=== PATIENT | female | born 1995 | race Caucasian/White ===

== ENCOUNTER → 2017-01-04 | Outpatient (CLI) | payer OTHER ==
[2017-01-04 14:44] LABS: CH 30.8; CHCM 33.3; HCT 35.3 % (34.0-46.0); HDW 2.26; HGB 11.6 gm/dL (11.4-16.0); MCH 30.5 pg (25.0-35.0); MCHC 32.9 g/dL (31.0-37.0); MCV 92.6 fL (80.0-100.0); Mean Platelet Volume 6.8; RBC 3.81 m/uL (3.80-5.40); RDW 12.6 % (11.5-15.5); WBC 10.6 k/uL (3.8-10.6)
== END | disposition home or self-care (01) ==
LOC: LABWHC1 13:11
PROVIDERS: ATTEND Obstetrics & Gynecology
DX: Z34.02 Encounter for supervision of normal first pregnancy, second trimester (principal)
CPT/HCPCS: 36415; 82950; 85027

== ENCOUNTER → 2017-02-23 | Outpatient (CLI) | payer OTHER ==
--- NOTE | 2017-02-23 15:38 | US ---
EXAMINATION TYPE: US OB anatomy transabd DATE OF EXAM: 02/23/2017 3:04 PM COMPARISON: 08/18/1716 HISTORY: large for dates 3rd trimester lga TECHNIQUE: Transabdominal (TA) EXAM MEASUREMENTS: GESTATIONAL AGE / DATING Physician Established: (35 weeks/0 days) EDC: 03/30/2017 Dates by LMP: (35 weeks/1 days) EDC: 03/31/2017 Dates by First Scan: (35 weeks/1 days) EDC: 03/31/2017 Dates by Current Scan for: (34 weeks/4 days) EDC: 04/02/2017 SURVEY IUP: Single PLACENTA: Fundal PREVIA: No previa AQUILINO: 11.2 cm Normal CERVICAL LENGTH (transabdominal: norm > 3.0cm): 3.4 cm BIOMETRY PRESENTATION: Vertex LIE: Longitudinal BPD: 8.8 cm 35 weeks / 3 days HC: 31.1 cm 34 weeks / 5 days AC: 31.3 cm 35 weeks / 2 days FL: 6.8 cm 34 weeks / 6 days ESTIMATED WEIGHT IN GRAMS: 2594 grams ESTIMATED WEIGHT IN LBS/OZS: 5 lbs. 12 oz. WEIGHT PERCENTAGE BASED ON ESTABLISHED DATE: 50 % HC/AC: 0.99 FL/AC: 21 HEART RATE: 149 bpm RHYTHM: Normal ANATOMY SEEN (within normal limits): * Lateral Vent (< 1 cm) 0.7 cm * Cisterna Magna (< 1.1 cm) 0.6 cm * Cerebellum (varies with age) 5.5 cm Midline Falx Cavus Septi Pellucidi Four Chamber Heart Stomach Nose / Lips Diaphragm Kidneys (bilateral) Bladder Three Vessel Cord Longitudinal Spine Transverse Spine ANATOMY NOT SEEN: Choroid Plexus (bilateral) Outflow tracts: LVOT/RVOT Situs Cord Insert Arms (bilateral) Legs (bilateral) IMPRESSION: Viable of 34 weeks 4 days with an EDC of 04/02/2017. 2. Limited assessment of internal anatomy secondary to advanced gestational age.
== END | disposition home or self-care (01) ==
LOC: RADUSWWP 14:26
PROVIDERS: ATTEND Obstetrics & Gynecology
DX: O36.63X0 Maternal care for excessive fetal growth, third trimester, not applicable or unspecified (principal); Z3A.34 34 weeks gestation of pregnancy
CPT/HCPCS: 76811

== ENCOUNTER 2017-03-21 01:20 | Inpatient (IN) | payer OTHER ==
[2017-03-21] MEDS ORDERED: CARBOPROST TROMETHAMINE 250 MCG/ML 1 ML AMP IM PRN (01:42)
[2017-03-21] MEDS ORDERED: LIDOCAINE 1% (PF) 10 MG/ML (30 ML SDV) SQ PRN (01:42)
[2017-03-21] MEDS ORDERED: OXYTOCIN 10 UNIT/ML 1 ML VIAL IM PRN (01:42)
[2017-03-21] MEDS ORDERED: TERBUTALINE 1 MG/ML VIAL SQ PRN (01:42)
[2017-03-21] MEDS ORDERED: AMPICILLIN 2,000 MG in SODIUM CHLORIDE 0.9% 100 ML IVPB STA (01:42)
[2017-03-21] MEDS ORDERED: METHYLERGONOVINE 0.2 MG/ML 1 ML AMP IM PRN (01:42)
[2017-03-21] MEDS ORDERED: LACTATED RINGERS 1,000 ML IV SCH (01:45)
[2017-03-21] MEDS ORDERED: methylPREDNISolone SOD SUCCI 125 MG/2 ML VIAL IV SCH (01:45)
--- NOTE | 2017-03-21 02:01 | P.HPOB ---
History of Present Illness H&P Date: 03/21/17 Chief Complaint: Contractions. This patient is a 21-year-old 1 para 0 female estimated date of confinement 03/31/2017 estimated gestational age 38-3/7 weeks gestational age who is admitted to labor and delivery with complaint of painful contractions patient was here earlier in the day only 2 cm dilated is now 9 cm dilated thought to be in active labor. care is per Dr. Iglesias. Most recently she was treated for asthma exacerbation with steroids and therefore does need stress dose steroids. She also has a positive group B strep culture this . Review of Systems Constitutional: Denies chills, Denies fever Ears, nose, mouth and throat: Denies headache, Denies sore throat Cardiovascular: Denies chest pain, Denies shortness of breath Respiratory: Denies cough Gastrointestinal: Reports heartburn Genitourinary: Reports pelvic pain, Reports Menstruation: Reports amenorrhea Past Medical History Past Medical History: Syncope History of Any Multi-Drug Resistant Organisms: None Reported Past Surgical History: No Surgical Hx Reported Past Anesthesia/Blood Transfusion Reactions: No Reported Reaction Past Psychological History: No Psychological Hx Reported Smoking Status: Never smoker Past Alcohol Use History: None Reported Past Drug Use History: None Reported Medications and Allergies Home Medications Medication Instructions Recorded Confirmed Type Pnv with Ca,No.72/Iron/FA 1 tab PO DAILY 03/20/17 03/20/17 History [ Plus Tablet] Allergies Allergy/AdvReac Type Severity Reaction Status Date / Time No Known Allergies Allergy Verified 03/21/17 01:43 Exam - Vital Signs Vital signs: Intake and Output 03/20/17 03/20/17 03/21/17 14:59 22:59 06:59 Other: Weight 86.183 kg Patient Weight 03/21/17 06:59 Weight 86.183 kg - OBG Physical Exam Abdomen: bowel sounds normal, no diffuse tenderness, no bruit present, no guarding noted, no hepatomegaly, no splenomegaly, no mass Vulva: both: normal Vagina: normal moisture, no discharge Cervix: Cervix is 9 cm dilated and the head is 0 station. Cervix: no lesion, no discharge Uterus: enlarged Results Blood work shows she is A positive, hepatitis B is negative, rubella immune, RPR is nonreactive, group B strep was normal, ultrasounds have been normal. Assessment and Plan (1) Third trimester Narrative/Plan: This is a 21-year-old 1 para 0 female 38-3/7 weeks gestation active labor. History of positive strep and recent history of steroid use. Plan is antibiotic prophylaxis, stress dose steroids in labor and anticipate vaginal delivery. Status: Acute (2) Normal labor Status: Acute (3) Group B streptococcal carriage complicating Status: Acute (4) History of recent steroid use Status: Acute
[2017-03-21 02:09] VITALS: BMI 29.7
[2017-03-21 02:19] LABS: CH 30.5; CHCM 34.1; HCT 40.2 % (34.0-46.0); HDW 2.65; HGB 13.6 gm/dL (11.4-16.0); MCH 30.4 pg (25.0-35.0); MCHC 33.7 g/dL (31.0-37.0); Mean Platelet Volume 8.2; RBC 4.46 m/uL (3.80-5.40); RDW 12.9 % (11.5-15.5); WBC (Perox) 25.34
[2017-03-21] MEDS ORDERED: diphenhydrAMINE 50 MG/ML 1 ML VIAL IVP PRN (02:36)
[2017-03-21] MEDS ORDERED: SIMETHICONE 80 MG CHEWABLE PO PRN (02:36)
[2017-03-21] MEDS ORDERED: BISACODYL 10 MG SUPP RECTAL PRN (02:36)
[2017-03-21] MEDS ORDERED: LANOLIN CREAM 5 GM TUBE TOPICAL PRN (02:36)
[2017-03-21] MEDS ORDERED: ZOLPIDEM 5 MG TAB PO PRN (02:36)
[2017-03-21] MEDS ORDERED: diphenhydrAMINE 25 MG CAP PO PRN (02:36)
[2017-03-21] MEDS ORDERED: WITCH HAZEL 1 EACH MED..PAD TOPICAL PRN (02:36)
[2017-03-21] MEDS ORDERED: HYDROCORTISONE 2.5% RECTAL CREAM 30 GM TUBE RECTAL PRN (02:36)
[2017-03-21] MEDS ORDERED: ACETAMINOPHEN TAB 325 MG TAB PO PRN (02:36)
[2017-03-21] MEDS ORDERED: BENZOCAINE/MENTHOL SPRAY 1 GM/SPRAY AEROSOL TOPICAL PRN (02:36)
--- NOTE | 2017-03-21 02:41 | P.PROBDLV ---
Vaginal Delivery Note - . Vaginal Delivery Note: Normal spontaneous vaginal delivery viable male infant Apgars 7 and 8 delivery time is 0222 hours Please see dictated H&P for intimate details of this patient's admission. Brief summary this is a 21-year-old 1 para 0 female 38-3/7 weeks gestation who is admitted to labor and delivery with complaints of contractions found to be 9 cm dilated. Patient has artificial rupture of membranes for clear fluid. She has a history of positive strep culture and therefore is given IV antibiotics. She also has a history of recent steroid use and therefore is given a dose of stress dose steroids. Patient's labor progresses quickly and she gets to complete. I infiltrate the posterior perineum with 1% lidocaine and a midline episiotomy is made. We then have controlled delivery of 's head over the perineum. Mouth and nares are bulb suctioned. There is very tight nuchal cord which is doubly clamped cut and reduced. Then have delivery the anterior posterior shoulder and rest this 's body. This is a vigorous viable male Apgars are 7 and 8 delivery time is 0222 hrs. after delivery of the the umbilical cords doubly clamped and cut appears to be trivascular. The placenta spontaneously delivered intact. Estimated blood loss is 150 mL. There is a second-degree midline laceration which is repaired with 3-0 Vicryl usual fashion good reapproximation is noted. Will be taken to the nursery for observation and blood work due to positive strep and short labor. All are stable delivery room. Note the patient's white count was 26 and therefore continue her on some oral antibiotics as well.
[2017-03-21] MEDS: IBUPROFEN 600 MG TAB PO PRN ×2 (02:54→17:38)
[2017-03-21 03:41] LABS: Add Differential Manual Differential
[2017-03-21 03:43] LABS: Nucleated Red Blood Cells 0 /100 WBC (0-0); Total Cells Counted 100
[2017-03-21 03:45] LABS: Toxic Granulation Present; Toxic Vacuolation Present
[2017-03-21 03:46] LABS: Large Platelets Present; Manual Review Performed
[2017-03-21] MEDS ORDERED: AMPICILLIN 1,000 MG in SODIUM CHLORIDE 0.9% 50 ML IVPB SCH (06:00)
[2017-03-21] MEDS ORDERED: OXYTOCIN 30 UNITS/500 ML NS 30 UNIT in SALINE 1 500ML.BAG IV SCH (06:45)
[2017-03-21] MEDS: AMOXIC-POT CLAV 875-125MG 1 EACH TAB PO SCH ×2 (08:04→21:06)
[2017-03-21] MEDS: SENNOSIDES-DOCUSATE SODIUM 1 EACH TAB PO SCH ×2 (08:04→21:04)
[2017-03-21] MEDS: methylPREDNISolone 4 MG TAB TAPER PO SCH (08:04)
[2017-03-21] MEDS: Acetaminophen-Codeine 300-30mg TAB PO PRN ×2 (08:05→22:57)
--- NOTE | 2017-03-21 08:09 | P.PN ---
Progress Note - Text Patient's abusive drug screen came back positive for marijuana and opiates. I did question the patient in regard to this she states that the Tylenol 3 she was taking that she received in the emergency department when she was diagnosed with bronchitis. She states that she is around a lot of people who use marijuana and that's where she believes that came from. Did tell her that social media marketing specialist consult will be put in place just ensure the baby was going home to a safe environment.
[2017-03-22 00:02] VITALS: RESP 16
[2017-03-22] MEDS: methylPREDNISolone 4 MG TAB TAPER PO SCH (07:47)
[2017-03-22] MEDS: AMOXIC-POT CLAV 875-125MG 1 EACH TAB PO SCH ×2 (07:48→21:56)
[2017-03-22] MEDS: SENNOSIDES-DOCUSATE SODIUM 1 EACH TAB PO SCH ×2 (07:48→23:32)
[2017-03-22] MEDS: IBUPROFEN 600 MG TAB PO PRN ×2 (07:48→14:27)
--- NOTE | 2017-03-22 09:14 | P.PNOBGVD ---
Subjective - Subjective Principal diagnosis: Status post vaginal delivery day #1 Interval history: Patient is doing okay. Bleeding is slowing down. She is breast-feeding. Baby is in special care nursery at this time. Her drug screen is positive for opiates and marijuana. She was prescribed Tylenol No. 3 through the ER recently due to her severe bronchitis and coughing. I was aware of this and did acknowledge that she was on it in the office. She was told to take the medication sparingly as needed. The positive drug screen for marijuana however is concerning. Patient reports: Reports appetite normal, Reports voiding normally, Reports pain well controlled, Reports ambulating normally : nursing well, other (In nursery) Objective - Latest Vital Signs Latest vital signs: Vital Signs Temp Pulse Resp BP 03/22/17 07:53 97.9 F 85 16 124/79 03/21/17 23:59 97.6 F 83 16 134/82 03/21/17 16:00 98.3 F 94 14 133/79 03/21/17 12:00 97.6 F 94 14 139/87 Intake and Output 03/21/17 03/22/17 03/22/17 22:59 06:59 14:59 Intake Total 600 Balance 600 Intake: Oral 600 Other: # Voids 2 1 - Exam Extremities: Present: normal. Absent: tenderness Abdomen: Present: normal appearance, soft. Absent: tenderness Uterus: Present: normal, firm. Absent: tenderness Assessment and Plan (1) Vaginal delivery Narrative/Plan: Impression is status post vaginal delivery day #1. Plan is to continue with care today and anticipate discharge home tomorrow. Will await social welfare research worker consult. Current Visit: Yes Status: Acute Code(s): O80 - ENCOUNTER FOR FULL-TERM UNCOMPLICATED DELIVERY SNOMED Code(s): 495895022
[2017-03-22 09:35] LABS: Basophils # (A) 0.1 k/uL (0-0.2); Basophils % (A) 0 %; CH 30.3; CHCM 34.3; Eosinophils # (A) 0.2 k/uL (0-0.7); Eosinophils % (A) 1 %; HCT 33.2 % (34.0-46.0); HDW 2.69; HGB 11.4 gm/dL (11.4-16.0); Luc # (Auto) 0.49; Luc % (Auto) 3; Lymphocytes # (A) 4.7 k/uL (1.0-4.8); Lymphocytes % (A) 24 %; MCH 30.4 pg (25.0-35.0); MCHC 34.3 g/dL (31.0-37.0); MCV 88.7 fL (80.0-100.0); Mean Platelet Volume 7.4; Monocytes # (A) 1.3 k/uL (0-1.0); Monocytes % (A) 7 %; Neutrophils # (A) 12.8 k/uL (1.3-7.7); Neutrophils % (A) 65 %; RBC 3.75 m/uL (3.80-5.40); RDW 13.2 % (11.5-15.5); WBC 19.7 k/uL (3.8-10.6); WBC (Perox) 20.88
[2017-03-22] MEDS ORDERED: ALBUTEROL NEBULIZED 2.5 MG/3 ML INHALATION STA (10:12)
[2017-03-22] MEDS: Acetaminophen-Codeine 300-30mg TAB PO PRN (17:53)
[2017-03-22] MEDS ORDERED: ALBUTEROL NEBULIZED 2.5 MG/3 ML INHALATION PRN ×2 (17:57→18:32)
[2017-03-23] MEDS: Acetaminophen-Codeine 300-30mg TAB PO PRN ×2 (02:08→13:40)
[2017-03-23] MEDS: IBUPROFEN 600 MG TAB PO PRN ×2 (07:48→17:03)
[2017-03-23] MEDS: methylPREDNISolone 4 MG TAB TAPER PO SCH (07:49)
[2017-03-23] MEDS: AMOXIC-POT CLAV 875-125MG 1 EACH TAB PO SCH (07:49)
[2017-03-23] MEDS: SENNOSIDES-DOCUSATE SODIUM 1 EACH TAB PO SCH (07:50)
[2017-03-23 08:23] VITALS: BP 128/78; PULSE 88; TEMP 98.1
--- NOTE | 2017-03-23 09:01 | P.DS ---
Providers Date of admission: 03/21/17 01:20 Expected date of discharge: 03/23/17 Attending physician: Ry Tinoco Primary care physician: Tish Iglesias - Discharge Diagnosis(es) (1) Vaginal delivery Current Visit: Yes Status: Acute Hospital Course: This is a 21-year-old female 1 para 0 at 38 weeks who presented in active labor. She delivered vaginally a viable male infant with scores of 7 at 1 minute 8 at 5 minutes and weight of 6 lbs. 2 oz. Her course has been uncomplicated. Baby has been in special care nursery. She is breast-feeding. Lochia is decreasing. Pain is fairly well controlled with ibuprofen and Tylenol 3. Vital signs are stable. Abdomen is soft with fundus firm and nontender. Extremities show negative Homans. Impression is status post vaginal delivery day #2. Plan is to discharge home today. Routine instructions are given. She is advised to follow up in the office in 6 weeks for check. To call the office if she has any further questions or concerns prior to her appointment time. Procedures: Spontaneous vaginal delivery of a viable male infant on 03/21/2017. Patient Condition at Discharge: Stable Plan - Discharge Summary New Discharge Prescriptions: Acetaminophen-Codeine 300-30mg [Tylenol w/codeine #3] 1 each PO Q4HR PRN #30 tab PRN Reason: Mild Pain exceeding Tylenol Ibuprofen [Motrin] 600 mg PO Q6HR PRN #60 tab PRN Reason: Mild Pain Or Fever >= 100.5 Discharge Medication List Pnv with Ca,No.72/Iron/FA [ Plus Tablet] 1 tab PO DAILY 03/20/17 [ History] Acetaminophen-Codeine 300-30mg [Tylenol w/codeine #3] 1 each PO Q4HR PRN #30 tab 03/22/17 [Rx] Ibuprofen [Motrin] 600 mg PO Q6HR PRN #60 tab 03/22/17 [Rx] Follow up Appointment(s)/Referral(s): Tish Iglesias DO [Primary Care Provider] - 6 Weeks Activity/Diet/Wound Care/Special Instructions: Instructions 1. Do not begin any exercise program for 3 weeks. 2. Do not resume sexual relations for 3 weeks or longer if uncomfortable. 3. You may take tub baths or showers at any time. 4. You may use tampons if desired after 3 weeks. 5. Keep the area of episiotomy (stitches) clean and dry. 6. If you are not nursing, wear a good fitting, supportive bra during the day and limit fluid intake for at least 1 week to prevent breast engorgement. 7. Call the office, [phone], within the next week to make appointment for your 6 week checkup if it has not already been made. 8. Report any of the following occurrences to the doctor promptly: a. Heavy, excessive bleeding b. Chills, fever c. Burning or frequency of urination d. Pain or redness and breasts if nursing e. Increasing pain or swelling in episiotomy (stitches). In addition to the above instructions, the following additional should be followed: 1. No heavy lifting or straining (exercising) until after 6 week checkup. 2. Keep abdominal incision clean and dry: You may wear a dressing if more comfortable. 3. Make office appointment for 10 days after going home or as instructed by her doctor. Discharge Disposition: HOME SELF-CARE
== END 2017-03-23 17:15 | disposition home or self-care (01) | DRG 775 ==
LOC: 4FBP 01:20
PROVIDERS: ADMIT Obstetrics & Gynecology; ATTEND Obstetrics & Gynecology
PROC: 0KQM0ZZ Repair Perineum Muscle, Open Approach (ICD-10-PCS; principal; 2017-03-21)
PROC: 10907ZC Drainage of Amniotic Fluid, Therapeutic from Products of Conception, Via Natural or Artificial Opening (ICD-10-PCS; principal; 2017-03-21)
PROC: 10H073Z Insertion of Monitoring Electrode into Products of Conception, Via Natural or Artificial Opening (ICD-10-PCS; principal; 2017-03-21)
PROC: 4A1H74Z Monitoring of Products of Conception, Cardiac Electrical Activity, Via Natural or Artificial Opening (ICD-10-PCS; principal; 2017-03-21)
PROC: 10E0XZZ Delivery of Products of Conception, External Approach (ICD-10-PCS; principal; 2017-03-21)
PROC: 0W8NXZZ Division of Female Perineum, External Approach (ICD-10-PCS; principal; 2017-03-21)
DX: O99.824 Streptococcus B carrier state complicating childbirth (principal); F17.210 Nicotine dependence, cigarettes, uncomplicated; F12.90 Cannabis use, unspecified, uncomplicated; Z37.0 Single live birth; Z3A.38 38 weeks gestation of pregnancy; O99.324 Drug use complicating childbirth; O69.1XX0 Labor and delivery complicated by cord around neck, with compression, not applicable or unspecified; O70.1 Second degree perineal laceration during delivery; O99.334 Smoking (tobacco) complicating childbirth
CPT/HCPCS: 80306; 85025; 88307; 94640

== ENCOUNTER → 2018-04-12 | Outpatient (CLI) | payer OTHER | END | disposition home or self-care (01) | LOC: RADNMMAIN 12:58 | PROVIDERS: ATTEND Surgery Plastic and Reconstructive Surgery | DX: Z53.1 Procedure and treatment not carried out because of patient's decision for reasons of belief and group pressure (principal) ==

== ENCOUNTER → 2018-06-20 | Outpatient (CLI) | payer OTHER ==
--- NOTE | 2018-06-20 09:24 | NM ---
Nuclear medicine hepatobiliary scan. HISTORY: Pain. DOSAGE: The patient received 8 oz. Ensure plus and 4.8 mCi of Technetium 99m Choletec. FINDINGS: There is normal hepatic extraction. The gallbladder is seen by 30 minutes. There is bilia ry to bowel clearance by 50 minutes. Ejection fraction is 56%. IMPRESSION: 1. Normal hepatobiliary exam
== END | disposition home or self-care (01) ==
LOC: RADNMMAIN 06:59
PROVIDERS: ATTEND Surgery Plastic and Reconstructive Surgery
DX: R10.11 Right upper quadrant pain (principal); K21.9 Gastro-esophageal reflux disease without esophagitis; Z88.1 Allergy status to other antibiotic agents; Z88.8 Allergy status to other drugs, medicaments and biological substances
CPT/HCPCS: 78226; A9537

== ENCOUNTER → 2018-09-16 | Outpatient (CLI) | payer OTHER ==
--- NOTE | 2018-09-17 21:23 | XR ---
EXAMINATION TYPE: XR lumbosacral spine min 4V DATE OF EXAM: 09/16/2018 COMPARISON: 07/26/2013 HISTORY: 22-year-old female with low back pain TECHNIQUE: 5 views FINDINGS: Levoconvex scoliosis. 5 lumbar type vertebral bodies. Small posterior fusion defect of S1. No pars in terarticularis defect. There is mild degenerative spurring in the lower lumbar spine. Alignment is ma intained. Vertebral body heights are preserved. Disc interspaces are also relatively maintained. The leftward curvature does cause some limitation in assessment on the lateral view. IMPRESSION: Levoconvex scoliosis. Mild degenerative facet spurring in the lower lumbar spine.
== END | disposition home or self-care (01) ==
LOC: RADXRMAIN 17:06
PROVIDERS: ATTEND Family Medicine
DX: M46.06 Spinal enthesopathy, lumbar region (principal); M41.86 Other forms of scoliosis, lumbar region
CPT/HCPCS: 72110

== ENCOUNTER 2019-04-10 20:54 | Emergency (ER) | payer OTHER ==
[2019-04-10 21:00] VITALS: BP 113/74; PULSE 102; TEMP 98.2
[2019-04-10 22:14] LABS: Appearance,Urine Clear (Clear); Bilirubin,Urine Negative (Negative); Blood,Urine Negative (Negative); Color,Urine Yellow; Glucose,Urine (UA) Negative (Negative); Hyaline Casts,Urine 1 /lpf (0-2); Ketones,Urine Negative (Negative); Leukocyte Esterase,Urine Small (Negative); Mucus,Urine Rare /hpf; Nitrite,Urine Negative (Negative); Protein,Urine Negative (Negative); RBC,Urine 1 /hpf (0-5); Specific Gravity,Urine 1.018 (1.001-1.035); Squamous Epithelial Cell,Urine 3 /hpf (0-4); Urobilinogen,Urine <2.0 mg/dL (<2.0); WBC,Urine 5 /hpf (0-5)
[2019-04-10] MEDS ORDERED: KETOROLAC 30 MG/ML 1 ML VIAL IM STA (22:16)
--- NOTE | 2019-04-10 23:28 | XR ---
EXAM: XR Lumbar Spine, 2 or 3 Views CLINICAL HISTORY: ITS.REASON XR Reason: Pain TECHNIQUE: Frontal and lateral views of the lumbar spine. COMPARISON: Lumbar spine radiographs on 09/16/2018 FINDINGS: Bones/joints: No acute fracture or subluxation. Stable mild left convex curvature of the lumbar spine. Soft tissues: Normal. IMPRESSION: No acute abnormality identified.
--- NOTE | 2019-04-10 23:30 | XR ---
EXAM: XR Left Hip With Pelvis When Performed, 2 or 3 Views CLINICAL HISTORY: ITS.REASON XR Reason: Pain TECHNIQUE: Two or three views of the left hip, with pelvis when performed. COMPARISON: Right hip radiographs on 05/09/2015 FINDINGS: Bones/joints: No acute fracture or dislocation identified. Joint space is maintained. No bony lesion. Soft tissues: Normal. IMPRESSION: No acute abnormality identified.
--- NOTE | 2019-04-10 23:37 | ED ---
General Adult HPI - General Chief complaint: Extremity Injury, Lower Stated complaint: Hip Pain Time Seen by Provider: 04/10/19 21:10 Source: patient, RN notes reviewed Mode of arrival: ambulatory Limitations: no limitations - History of Present Illness Initial comments: 23-year-old female presents to the emergency department for a chief of left hip pain 9 hours. Patient states that she was getting out of her car when she swung her left leg around and suddenly felt a pain in her left hip. States that she has had this pain several times before because he has a history of scoliosis. States she sees a chiropractor weekly for this. Patient states the pain is in her buttock and wraps around her left hip. States she is able to walk on it but it is painful. States she does not take Motrin or Tylenol much because it makes her nauseous. Patient states her primary care doctor is aware of this problem. Patient denies any bladder or bowel changes. Denies any saddle anesthesia. Denies any history of IV drug abuse. Denies any weakness of the lower extremities. Denies any fevers or chills.Patient has no other complaints at this time including shortness of breath, chest pain, abdominal pain, nausea or vomiting, headache, or visual changes. - Related Data Home Medications Medication Instructions Recorded Confirmed No Known Home Medications 04/10/19 04/10/19 Allergies Allergy/AdvReac Type Severity Reaction Status Date / Time acetaminophen [From [place]] AdvReac Nausea & Verified 04/10/19 21:09 Vomiting hydrocodone [From [place]] AdvReac Nausea & Verified 04/10/19 21:09 Vomiting Review of Systems ROS Statement: Those systems with pertinent positive or pertinent negative responses have been documented in the HPI. ROS Other: All systems not noted in ROS Statement are negative. Past Medical History Past Medical History: Syncope Additional Past Medical History / Comment(s): scoliosis History of Any Multi-Drug Resistant Organisms: None Reported Past Surgical History: No Surgical Hx Reported Past Anesthesia/Blood Transfusion Reactions: No Reported Reaction Past Psychological History: No Psychological Hx Reported Smoking Status: Current every day smoker Past Alcohol Use History: None Reported Past Drug Use History: None Reported - Past Family History Mother Family Medical History: No Reported History General Exam Limitations: no limitations General appearance: alert, in no apparent distress Head exam: Present: atraumatic, normocephalic, normal inspection Eye exam: Present: normal appearance, PERRL, EOMI. Absent: scleral icterus, conjunctival injection, periorbital swelling ENT exam: Present: normal exam, mucous membranes moist, normal external ear exam Neck exam: Present: normal inspection, full ROM. Absent: tenderness, meningismus, lymphadenopathy Respiratory exam: Present: normal lung sounds bilaterally. Absent: respiratory distress, wheezes, rales, rhonchi, stridor Cardiovascular Exam: Present: regular rate, normal rhythm, normal heart sounds. Absent: systolic murmur, diastolic murmur, rubs, gallop, clicks GI/Abdominal exam: Present: soft, normal bowel sounds. Absent: distended, tenderness, guarding, rebound, rigid Extremities exam: Present: normal capillary refill (Capillary refill less than 2 seconds, DP pulse 2+ in the left lower extremity and equal in the right lower extremity). Absent: full ROM (Patient has flexion of the left hip to 90 with full extension), tenderness (No significant tenderness of the left hip), pedal edema, joint swelling, calf tenderness (Tenderness noted in the left calf), other (No erythema or edema noted of the left hip, sensation intact in the left lower extremity) Back exam: Absent: vertebral tenderness (No tenderness noted of the lumbar spine) Neurological exam: Present: alert, oriented X3, CN II-XII intact Psychiatric exam: Present: normal affect, normal mood Course Vital Signs 04/10/19 04/10/19 20:57 22:29 Temperature 98.2 F Pulse Rate 102 H Respiratory 20 18 Rate Blood Pressure 113/74 O2 Sat by Pulse 99 Oximetry Medical Decision Making - Medical Decision Making 23-year-old female presents for left hip pain 9 hours. Patient states she has had this pain due to her scoliosis several times before. States that she sees a chiropractor weekly for this. States often her hip as malaligned and needs realignment. On examiner bacitracin is is intact and left lower extremity. Patient has flexion of the left hip to 90. Patient is ambulatory on the hip and did ambulate into the emergency department as well as inability to the bathroom. Patient was given Toradol X-ray of the lumbar spine shows no acute abnormality. X-ray of the hip and pelvis shows no acute abnormality. No fracture or dislocation. They did go into patient's exam room after x-ray results to discuss results. Patient became very upset when I told her hip was not dislocated. States that she came here for a chiropractor and is upset there are no chiropractor's through the emergency department. States that her chiropractor is always able to fix this. I did discuss with patient that I'm not trained in this type of manipulative medicine and she will need to follow-up with her chiropractor tomorrow morning. Also discussed following up with orthopedics. I did give her referral. Patient is requesting Flexeril sitting sometimes this helps. Patient will be given a starter pack of this as well as Zofran because sometimes she has nausea with this. Discussed returning here if she has any worsening symptoms or fevers. - Lab Data Lab Results 04/10/19 04/10/19 Range/Units 21:40 21:40 Urine Color Yellow Urine Appearance Clear (Clear) Urine pH 8.0 (5.0-8.0) Ur Specific [place] 1.018 (1.001-1.035) Urine Protein Negative (Negative) Urine Glucose (UA) Negative (Negative) Urine Ketones Negative (Negative) Urine Blood Negative (Negative) Urine Nitrite Negative (Negative) Urine Bilirubin Negative (Negative) Urine Urobilinogen <2.0 (<2.0) mg/dL Ur Leukocyte Esterase Small H (Negative) Urine RBC 1 (0-5) /hpf Urine WBC 5 (0-5) /hpf Ur Squamous Epith Cells 3 (0-4) /hpf Hyaline Casts 1 (0-2) /lpf Urine Mucus Rare H (None) /hpf Urine HCG, Qual Not Detected (Not Detectd) Disposition Clinical Impression: Hip pain, left, Chronic back pain Disposition: HOME SELF-CARE Condition: Good Instructions (If sedation given, give patient instructions): Hip Pain (ED) Additional Instructions: Please take Motrin and Tylenol for pain. Do not drive or operate machinery while taking Flexeril. Please follow-up with your primary care provider or orthopedics in one to 2 days. If you develop any worsening symptoms return here to the emergency department. Is patient prescribed a controlled substance at d/c from ED?: No Referrals: Alek Hood DO [Primary Care Provider] - 1-2 days Shahzad Barroso DO [Doctor of Osteopathic Medicine] - 1-2 days Time of Disposition: 00:15
[2019-04-10] MEDS: methylPREDNISolone SOD SUCCI 125 MG/2 ML VIAL IM ONE ×2 (23:47→23:50)
[2019-04-10] MEDS ORDERED: CYCLOBENZAPRINE 10MG STARTER 3 TAB BTL PO STA (23:53)
[2019-04-10] MEDS ORDERED: ONDANSETRON 4 MG ODT STARTER PACK 2 TAB BTL PO STA (23:53)
[2019-04-10] MEDS ORDERED: predniSONE 50 MG TAB PO STA (23:53)
[2019-04-11 00:28] VITALS: RESP 16
== END 2019-04-11 00:20 | disposition home or self-care (01) ==
LOC: EC 20:54
DX: M25.552 Pain in left hip (principal); G89.29 Other chronic pain; M54.5 Low back pain; F17.200 Nicotine dependence, unspecified, uncomplicated; Z88.5 Allergy status to narcotic agent; Z88.6 Allergy status to analgesic agent; Z87.39 Personal history of other diseases of the musculoskeletal system and connective tissue; Z53.20 Procedure and treatment not carried out because of patient's decision for unspecified reasons
CPT/HCPCS: 81001; 81025; 72100; 73502; 99283; 96372; J1885; S0119; J7512

== ENCOUNTER 2019-11-13 14:43 | Emergency (ER) | payer OTHER ==
[2019-11-13 14:52] VITALS: BP 117/77; RESP 18; TEMP 97.9
[2019-11-13] MEDS ORDERED: IPRATROPIUM-ALBUTEROL 3 ML NEB INHALATION STA (14:58)
--- NOTE | 2019-11-13 15:22 | ED ---
URI HPI - General Chief Complaint: Upper Respiratory Infection Stated Complaint: Cough, Sore Throat, ENT Time Seen by Provider: 11/13/19 14:53 Source: patient, RN notes reviewed Mode of arrival: ambulatory Limitations: no limitations - History of Present Illness Initial Comments: this a 23-year-old female presents emergency Department chief complaint cough, dizziness, sore throat. Patient states that she has went away sweats or throat. She was seen at [facility] for restorative care and negative strep. Patient states that she was very frustrated with her care so she presented emergency department. Patient states is painful with noted the swelling. She reports subjective fevers and chills. Patient denies any sick contacts. She states that she started taking h er boyfriend old antibiotics which included clindamycin. Patient denies any headache, dizziness, neck stiffness denies any chance . - Related Data Previous Rx's Medication Instructions Recorded predniSONE 50 mg PO DAILY #5 tab 11/13/19 Allergies Allergy/AdvReac Type Severity Reaction Status Date / Time acetaminophen [From [place]] AdvReac Nausea & Verified 11/13/19 14:50 Vomiting hydrocodone [From [place]] AdvReac Nausea & Verified 11/13/19 14:50 Vomiting Review of Systems ROS Statement: Those systems with pertinent positive or pertinent negative responses have been documented in the HPI. ROS Other: All systems not noted in ROS Statement are negative. Past Medical History Past Medical History: Syncope Additional Past Medical History / Comment(s): scoliosis History of Any Multi-Drug Resistant Organisms: None Reported Past Surgical History: No Surgical Hx Reported Past Anesthesia/Blood Transfusion Reactions: No Reported Reaction Past Psychological History: No Psychological Hx Reported Smoking Status: Current every day smoker Past Alcohol Use History: None Reported Past Drug Use History: None Reported - Past Family History Mother Family Medical History: No Reported History General Exam Limitations: no limitations General appearance: alert, in no apparent distress Head exam: Present: atraumatic, normocephalic, normal inspection Eye exam: Present: normal appearance, PERRL, EOMI. Absent: scleral icterus, conjunctival injection, periorbital swelling ENT exam: Present: mucous membranes moist, TM's normal bilaterally, normal external ear exam. Absent: normal oropharynx (tonsils swollen with exudates noted mild erythema on secretions well) Neck exam: Present: normal inspection, full ROM, lymphadenopathy. Absent: tenderness, meningismus Respiratory exam: Present: normal lung sounds bilaterally. Absent: respiratory distress, wheezes, rales, rhonchi, stridor Cardiovascular Exam: Present: regular rate, normal rhythm, normal heart sounds. Absent: systolic murmur, diastolic murmur, rubs, gallop, clicks GI/Abdominal exam: Present: soft, normal bowel sounds. Absent: distended, tenderness, guarding, rebound, rigid Course Vital Signs 11/13/19 11/13/19 11/13/19 14:50 15:10 15:24 Temperature 97.9 F Pulse Rate 96 96 92 Respiratory 18 Rate Blood Pressure 117/77 O2 Sat by Pulse 99 Oximetry Medical Decision Making - Medical Decision Making patient has positive heterophile symptoms are consistent with mono at this time. Patient does have notable wheezingrelated to herasthma, smoking history. Patient will be started on prednisone.I counseled the patient for smoking cessation for greater than 3 minutes. We discussed all contact sports for 2 weeks she is to follow-up with PCP and return for any worsening symptoms. - Lab Data Lab Results 11/13/19 Range/Units 15:02 Heterophile Antibody Positive (Negative) Disposition Clinical Impression: Mononucleosis, Asthma Disposition: HOME SELF-CARE Condition: Stable Instructions (If sedation given, give patient instructions): Mononucleosis (ED) Additional Instructions: Please return to the Emergency Department if symptoms worsen or any other concerns. Prescriptions: predniSONE 50 mg PO DAILY #5 tab Is patient prescribed a controlled substance at d/c from ED?: No Referrals: Alek Hood DO [Primary Care Provider] - 1-2 days Time of Disposition: 16:09
[2019-11-13 15:26] VITALS: PULSE 92
--- NOTE | 2019-11-13 15:41 | XR ---
EXAMINATION TYPE: XR chest 2V DATE OF EXAM: 11/13/2019 COMPARISON: Prior chest x-ray 03/03/2017 HISTORY: Cough and congestion TECHNIQUE: Frontal and lateral views of the chest are obtained. FINDINGS: There is no focal air space opacity, pleural effusion, or pneumothorax seen. The cardiac silhouette size is within normal limits. There is a slight spinal curvature. The osseous structures are intact. IMPRESSION: No acute cardiopulmonary process.
[2019-11-13] MEDS ORDERED: predniSONE 50 MG TAB PO STA (16:08)
== END 2019-11-13 16:22 | disposition home or self-care (01) ==
LOC: EC 14:43
DX: J45.909 Unspecified asthma, uncomplicated (principal); B27.90 Infectious mononucleosis, unspecified without complication; Z71.6 Tobacco abuse counseling; F17.200 Nicotine dependence, unspecified, uncomplicated; Z88.5 Allergy status to narcotic agent; Z88.6 Allergy status to analgesic agent
CPT/HCPCS: 36415; 94640; 86308; 71046; 99284; 99406; J7512

== ENCOUNTER → 2020-01-17 | Day surgery (SDC) | payer OTHER ==
[2020-01-15 14:41] VITALS: BMI 19.5
[~2020-01-17] MED LIST: GLYCOPYRROLATE 0.2 MG/ML 2 ML VIAL ONE; LACTATED RINGERS 1,000 ML IV SCH; LIDOCAINE 1% (10MG/ML) FOR IV START INTRADERMA PRN; LIDOCAINE 1% INJ 10MG/ML (20 ML MDV) ONE; MIDAZOLAM 2 MG/2 ML VIAL ONE; PROPOFOL 10 MG/ML 20 ML VIAL IV ONE
--- NOTE | 2020-01-17 08:24 | P.GSHP ---
History of Present Illness H&P Date: 01/17/20 CHIEF COMPLAINT: GERD HISTORY OF PRESENT ILLNESS: The patient is a 24-year-old female who presents reports gastroesophageal reflux disease. Upper endoscopy was offered for further evaluation and management. PAST MEDICAL HISTORY: Please see list. PAST SURGICAL HISTORY: Please see list. MEDICATIONS: Please see list. ALLERGIES: Please see list. SOCIAL HISTORY: No illicit drug use FAMILY HISTORY: No reports of Crohn disease or ulcerative colitis. REVIEW OF ORGAN SYSTEMS: CONSTITUTIONAL: No reports of fevers or chills. GI: Denies any blood in stools or constipation. PHYSICAL EXAM: VITAL SIGNS: Stable GENERAL: Well-developed and pleasant in no acute distress. HEENT: No scleral icterus. Extraocular movements grossly intact. Moist buccal mucosa. NECK: Supple without lymphadenopathy. CHEST: Unlabored respirations. Equal bilateral excursions. CARDIOVASCULAR: Regular rate and rhythm. Distal 2+ pulses. ABDOMEN: Soft, nondistended. MUSCULOSKELETAL: No clubbing, cyanosis, or edema. ASSESSMENT: 1. Gastroesophageal reflux disease PLAN: 1. Recommend proceeding with an upper endoscopy Past Medical History Past Medical History: Asthma, Musculoskeletal Disorder, Syncope Additional Past Medical History / Comment(s): scoliosis, hiatal hernia, abd. pain, recent bronchitis now resolved History of Any Multi-Drug Resistant Organisms: None Reported Past Surgical History: No Surgical Hx Reported Additional Past Surgical History / Comment(s): EGD Past Anesthesia/Blood Transfusion Reactions: No Reported Reaction Smoking Status: Current every day smoker - Past Family History Mother Family Medical History: No Reported History Medications and Allergies Home Medications Medication Instructions Recorded Confirmed Type Albuterol Inhaler [Ventolin Hfa 1 - 2 puff INHALATION RT-Q6H PRN 01/15/20 01/15/20 History Inhaler] Cetirizine HCl [Zyrtec] 10 mg PO DAILY 01/15/20 01/15/20 History Allergies Allergy/AdvReac Type Severity Reaction Status Date / Time acetaminophen [From Index] AdvReac Nausea & Verified 01/15/20 13:09 Vomiting hydrocodone [From Index] AdvReac Nausea & Verified 01/15/20 13:09 Vomiting
[2020-01-17 09:34] VITALS: TEMP 97.3
--- NOTE | 2020-01-17 10:06 | P.PCN ---
Date of Procedure: 01/17/20 Description of Procedure: PREOPERATIVE DIAGNOSIS: Gastroesophageal reflux disease. POSTOPERATIVE DIAGNOSIS: Gastritis acute with recent bleeding Gastroesophageal reflux disease. OPERATION: Esophagogastroduodenoscopy with biopsies along antrum. SURGEON: Sheryl Henning MD ANESTHESIA: MAC. INDICATIONS: The patient is a 24-year-old female who presents with a history of reflux disease. Benefits and risks of the procedure were described. Informed consent was obtained. DESCRIPTION: The patient was brought into the endoscopy suite and laid in the left lateral decubitus position. An Olympus gastroscope was passed along the posterior oropharynx down to the distal esophagus where the squamocolumnar junction was encountered at 41 cm from the incisors. The stomach was entered and no bile reflux was found. Additional findings are listed below. Biopsies with cold forceps were obtained of the antrum. The first through third portion of the duodenum was examined and unremarkable. Retroflexion of the scope confirmed Hill grade 1 lower esophageal valve. The squamocolumnar junction demonstrated no LA grade A erosive esophagitis. The stomach was desufflated. The patient tolerated the procedure well. FINDINGS: Squamocolumnar junction 41 cm from the incisors. Diaphragmatic hiatus at 41 cm. Hill grade 1 lower esophageal valve. No LA grade A erosive esophagitis. No active duodenitis. Chronic gastritis with recent bleed RECOMMENDATIONS: 1. Recommend omeprazole 40 mg daily for 2 weeks 2. Upper endoscopy as needed. Plan - Discharge Summary Discharge Rx Participant: No New Discharge Prescriptions: New Omeprazole [PriLOSEC] 40 mg PO DAILY #14 cap Continue Cetirizine HCl [Zyrtec] 10 mg PO DAILY Albuterol Inhaler [Ventolin Hfa Inhaler] 1 - 2 puff INHALATION RT-Q6H PRN PRN Reason: Dyspnea Discharge Medication List Albuterol Inhaler [Ventolin Hfa Inhaler] 1 - 2 puff INHALATION RT-Q6H PRN 01/15/20 [History] Cetirizine HCl [Zyrtec] 10 mg PO DAILY 01/15/20 [History] Omeprazole [PriLOSEC] 40 mg PO DAILY #14 cap 01/17/20 [Rx] Follow up Appointment(s)/Referral(s): Sheryl Henning MD [STAFF PHYSICIAN] - 01/30/20 Patient Instructions/Handouts: Gastritis (DC), Diet for Stomach Ulcers and Gastritis (GEN) Discharge Disposition: HOME SELF-CARE
[2020-01-17 10:34] VITALS: BP 105/66; PULSE 66; RESP 16
== END | disposition home or self-care (01) ==
LOC: ORWHC2ENDO 08:53
PROVIDERS: ATTEND Surgery Plastic and Reconstructive Surgery
DX: K29.51 Unspecified chronic gastritis with bleeding (principal); J45.909 Unspecified asthma, uncomplicated; R55 Syncope and collapse; M41.9 Scoliosis, unspecified; K21.9 Gastro-esophageal reflux disease without esophagitis; D64.9 Anemia, unspecified; F17.200 Nicotine dependence, unspecified, uncomplicated; Z79.899 Other long term (current) drug therapy; Z88.5 Allergy status to narcotic agent
CPT/HCPCS: 81025; 88305; 43239; J2250; J2001; J2704

== ENCOUNTER → 2020-09-05 | Outpatient (CLI) | payer OTHER ==
[2020-09-05 13:06] VITALS: BP 111/75; PULSE 103; RESP 12; TEMP 98.4
--- NOTE | 2020-09-05 13:47 | P.GSHP ---
History of Present Illness H&P Date: 09/05/20 Chief Complaint: right nipple discharge Kitty is a 24-year-old white female seen in consultatin for Dr. Hood with a year and a half complaint of right nipple discharge. This is dark geenish brown in color. She has never noted any blood in the discharge. It does not occur spontaneously. There is no cyclical nature to this. It does not stain her bra. She does not feel any lumps masses or nodules for which she is concerned. Her bilateral mammogram performed on this was felt to be and completed an ultrasound of both breasts were recommended. The ultrasound as per the patient did not show anything of concern and the report is pending. Caffiene: one extra strength 5 hour energy per day, several Mountain Dew's per day Nicotine: Half a pack per day for 6 years Theophylline: daily hormones: none Family History: great grandmother maternal: bilateral breast cancer Hormonal History: menarche: 11 , breast fed: yes, age at : 21 periods regular, LMP BCP: used for 1 month in the past Surgical history: colonoscopy EGD/ hiatal hernia Medical history: stomach pain hiatal hernia Social History: smoke: 1/2 PPD alcohol: rare drugs: Marijuana every night - Constitutional Constitutional: Denies chills, Denies fever - EENT Eyes: bilateral blurred vision, bilateral pain Ears: deny: decreased hearing, tinnitus Ears, nose, mouth and throat: Reports headache, Denies sore throat - Breasts Breasts: bilateral: as per HPI - Cardiovascular Cardiovascular: Reports high blood pressure, Denies chest pain, Denies shortness of breath - Respiratory Comment: asthma Respiratory: Denies cough, Denies 7 - Gastrointestinal Gastrointestinal: Reports diarrhea - Genitourinary (Female) Genitourinary: Denies dysuria, Denies hematuria - Menstruation Menstruation: Reports period normal - Musculoskeletal Comment: scoliosis Musculoskeletal: Denies myalgias - Integumentary Integumentary: Denies pruritus, Denies rash - Neurological Neurological: Reports numbness, Reports weakness - Psychiatric Psychiatric: Reports anxiety, Reports depression - Endocrine Endocrine: Reports fatigue, Reports weight change - Hematologic/Lymphatic Comment: none - Allergic/Immunologic Allergic/Immunologic: Reports seasonal allergies Past Medical History Past Medical History: Asthma, Musculoskeletal Disorder, Syncope Additional Past Medical History / Comment(s): scoliosis, hiatal hernia, abd. pain, recent bronchitis now resolved History of Any Multi-Drug Resistant Organisms: None Reported Past Surgical History: No Surgical Hx Reported Additional Past Surgical History / Comment(s): EGD Past Anesthesia/Blood Transfusion Reactions: No Reported Reaction Past Psychological History: No Psychological Hx Reported Smoking Status: Current every day smoker Past Alcohol Use History: None Reported Additional Past Alcohol Use History / Comment(s): 1/2ppd for 5 yrs. Past Drug Use History: None Reported - Past Family History Mother Family Medical History: No Reported History Medications and Allergies Home Medications Medication Instructions Recorded Confirmed Type Albuterol Inhaler (Mhu) [Ventolin 1 - 2 puff INHALATION RT-Q6H PRN 01/15/20 09/05/20 History Hfa Inhaler (Mhu)] Cetirizine HCl [Zyrtec] 10 mg PO DAILY PRN 01/15/20 09/05/20 History Allergies Allergy/AdvReac Type Severity Reaction Status Date / Time acetaminophen [From [place]] AdvReac Nausea & Verified 09/05/20 12:56 Vomiting hydrocodone [From [place]] AdvReac Nausea & Verified 09/05/20 12:56 Vomiting Surgical - Exam Vital Signs Temp Pulse Resp BP Pulse Ox 98.4 F 103 H 12 111/75 99 09/05/20 13:00 09/05/20 13:00 09/05/20 13:00 09/05/20 13:00 09/05/20 13:00 BMI 23.8 - General well developed, well nourished, no distress - Eyes normal ocular movement - ENT no hearing loss, no congestion - Neck no masses, trachea midline - Respiratory normal respiratory effort, clear to auscultation - Cardiovascular Rhythm: regular Heart Sounds: normal: S1, S2 - Abdomen Abdomen: soft, non tender, no guarding, no rigid, no rebound - Integumentary normal turgor - Neurologic no disoriented, no combative - Musculoskeletal normal gait, normal posture - Psychiatric oriented to time, oriented to person, oriented to place, speech is normal, memory intact Breast exam: BRA: 34D inspection: grade 2 ptosis bilateral Palpation: Right breast: Multi-positional exam fibrocystic changes, with palpation there is some clear/green discharge from the 12:00 nipple position this is guaiac negative; no dominant masses or nodules of concern Right axilla: No adenopathy of concern Left breast: Multi-positional exam fibrocystic changes, no dominant masses or nodules of concern no nipple discharge Left axilla: No adenopathy of concern Results Mammogram results reviewed, ultrasound results pending Assessment and Plan Assessment: Impression: 1. Fibrocystic breast changes 2. Nipple discharge right breast believed to be fibrocystic in nature 3. Anxiety/depression 4. High caffeine intake, nicotine intake, theophylline intake 5. Spinal scoliosis 6. diarrhea 7. Lethargy Plan: 1. Obtain ultrasound report of the breast/ follow up after report obtained 2. Counseled patient to decrease caffeine/nicotine/theophylline intake 3. Follow-up bilateral breast ultrasound in 1 year with physician exam at that time 4. Patient to see us sooner if she notes any bloody discharge or increased nipple discharge 5. Thyroid panel and follow up with primary care doctor regarding lethargy CC: Dr. Hood encounter 30 minutes, > 50% of time in planning and counselling
== END | disposition home or self-care (01) ==
LOC: WWCWWP 12:50
PROVIDERS: ATTEND Surgery
DX: Z53.9 Procedure and treatment not carried out, unspecified reason (principal)

== ENCOUNTER → 2020-09-11 | Outpatient (CLI) | payer OTHER ==
[2020-09-12 03:47] LABS: T4, Free (Free Thyroxine) 1.1 ng/dL (0.80-1.80)
== END | disposition home or self-care (01) ==
LOC: LABWHC1 16:03
PROVIDERS: ATTEND Surgery
DX: Z13.29 Encounter for screening for other suspected endocrine disorder (principal)
CPT/HCPCS: 36415; 84439; 84443; 84481

== ENCOUNTER → 2020-09-13 | Outpatient (CLI) | payer OTHER ==
[2020-09-13 16:45] VITALS: BP 106/72; PULSE 68; RESP 18; TEMP 98.2
--- NOTE | 2020-09-13 16:53 | P.PN ---
Progress Note - Text Progress Note Date: 09/13/20 Kitty is a 24-year-old white female recently seen in consultation for Dr. Hood with a year and half complaining of right nipple discharge. This is dark greenish brown in color and she has never noted any blood in the discharge. It does not occur spontaneously. She was felt to have this secondary to fibrocystic changes. A guaiac test and this was done on her last visit which was negative for blood. She did have an ultrasound performed at the [facility] (formerly [facility]) on . This was bilateral and felt to be benign BIRADS 2 and normal interval follow-up was recommended. She also complained of fatigue and bladder function studies were performed on her last visit. Free T3, T4 and TSH were all within normal limits. She is going to follow with Dr. Hood regarding the fatigue. She will follow here with bilateral breast ultrasound physician exam in 1 year. If she notes any bloody nipple discharge she will see us sooner. Caffeine: One extra strength 5 hour energy drink per day, several Mondays per day Nicotine: Half pack per day for 6 years Theophylline: Daily Hormones: Negative Impression: 1. Fatigue 2. Nipple discharge on the right which appears to be related to fibrocystic change 3. Bilateral breast ultrasound did not show any lesions of concern Plan: 1. Repeat bilateral breast ultrasound in 1 year with physician exam at that time 2. Patient will try to modify her lifestyle as far as energy drinks and nicotine exposure CC: Dr. Hood encounter 10 minutes
== END | disposition home or self-care (01) ==
LOC: WWCWWP 16:04
PROVIDERS: ATTEND Surgery
DX: Z53.9 Procedure and treatment not carried out, unspecified reason (principal)

== ENCOUNTER → 2021-09-12 | Outpatient (CLI) | payer OTHER ==
[2021-09-12 15:41] VITALS: BP 121/78; PULSE 67; RESP 12; TEMP 98.4
--- NOTE | 2021-09-12 15:51 | P.PN ---
Subjective Progress Note Date: 09/12/21 Principal diagnosis: fibrocystic breast pain Kitty is a 25-year-old white female seen initially in consultation for Dr. Hood with a complaint of right nipple discharge. This was dark geenish brown in color. She had never noted any blood in the discharge. It did not occur spontaneously. There was no cyclical nature to this. It did not stain her bra. She did not feel any lumps masses or nodules for which she was concerned. [place] [id number] this was felt to be incomplete and an ultrasound of both breasts were recommended. The ultrasound as per the patient did not show anything of concern and was BIRAD 2. The patient has no spontaneous nipple discharge at this time. She has no lumps masses or nodules in her breasts for which she is concerned at this time. She has had no radiographic studies of her breast since last year. Caffiene: one extra strength 5 hour energy per day, several Mountain Dew's per day Nicotine: Half a pack per day for 6 years chocolate: several times/week hormones: none Family History: great grandmother maternal: bilateral breast cancer Hormonal History: menarche: 11 , breast fed: yes, age at : 21 periods regular, LMP Jul. 12 BCP: used for 1 month in the past Surgical history: colonoscopy EGD/ hiatal hernia Medical history: stomach pain hiatal hernia Social History: smoke: 1/2 PPD alcohol: rare drugs: Marijuana every night - Constitutional Constitutional: Denies chills, Denies fever - EENT Eyes: bilateral blurred vision, bilateral pain Ears: deny: decreased hearing, tinnitus Ears, nose, mouth and throat: Reports headache, Denies sore throat - Breasts Breasts: bilateral: as per HPI - Cardiovascular Cardiovascular: Reports high blood pressure, Denies chest pain, Denies shortness of breath - Respiratory Comment: asthma Respiratory: Denies cough - Gastrointestinal Gastrointestinal: Reports diarrhea - Genitourinary (Female) Genitourinary: Denies dysuria, Denies hematuria - Menstruation Menstruation: Reports period normal - Musculoskeletal Comment: scoliosis Musculoskeletal: Denies myalgias - Integumentary Integumentary: Denies pruritus, Denies rash - Neurological Neurological: Reports numbness, Reports weakness - Psychiatric Psychiatric: Reports anxiety, Reports depression - Endocrine Endocrine: Reports fatigue, Reports weight change - Hematologic/Lymphatic Comment: none - Allergic/Immunologic Allergic/Immunologic: Reports seasonal allergies Objective - Constitutional General appearance: Present: cooperative - EENT Eyes: Present: EOMI ENT: Present: hearing grossly normal - Neck Neck: Present: normal ROM - Respiratory Respiratory: bilateral: CTA - Cardiovascular Rhythm: regular Heart sounds: normal: S1, S2 - Gastrointestinal General gastrointestinal: Present: soft - Integumentary Integumentary: Present: normal turgor - Musculoskeletal Musculoskeletal: Present: gait normal - Psychiatric Psychiatric: Present: A&O x's 3, appropriate affect, intact judgment & insight - Additional findings Additional findings: Breast Exam: BRA: 36C inspection: grade 2 ptosis, right breast slightly smaller than left breast palpation: Breasts: Multi-positional exam fibrocystic changes no dominant masses or nodules of concern Right axilla: No adenopathy of concern Left breast: Multiple positional exam fibrocystic changes no dominant masses or nodules of concern Left axilla: No adenopathy of concern At this time there is no nipple discharge on exam Assessment and Plan Assessment: Pressure: Fibrocystic breast changes Plan: I've counseled the patient on decreasing caffeine intake and nicotine, she understands and will consider lifestyle modification Repeat physician exam in 1 year Patient to call sooner if any questions or concerns Cc: Dr. Hood
== END ==
LOC: WWCWWP 15:33
PROVIDERS: ATTEND Surgery
DX: N60.11 Diffuse cystic mastopathy of right breast (principal); N60.12 Diffuse cystic mastopathy of left breast; F17.210 Nicotine dependence, cigarettes, uncomplicated; Z88.5 Allergy status to narcotic agent; Z88.6 Allergy status to analgesic agent

== ENCOUNTER → 2021-10-02 | Outpatient (CLI) | payer OTHER | END | disposition home or self-care (01) | LOC: LABWHC1 11:50 | PROVIDERS: ATTEND Family Medicine | DX: Z20.822 Contact with and (suspected) exposure to COVID-19 (principal); J44.1 Chronic obstructive pulmonary disease with (acute) exacerbation | CPT/HCPCS: U0003; C9803; U0005 ==

== ENCOUNTER → 2021-12-04 | Outpatient (CLI) | payer OTHER | END | disposition home or self-care (01) | LOC: LABWHC1 12:00 | PROVIDERS: ATTEND Family Medicine | DX: Z20.822 Contact with and (suspected) exposure to COVID-19 (principal); R09.81 Nasal congestion | CPT/HCPCS: U0003; C9803; U0005 ==

== ENCOUNTER → 2022-09-18 | Outpatient (CLI) | payer OTHER ==
[2022-09-18 16:01] VITALS: BP 121/78; PULSE 80; RESP 16
--- NOTE | 2022-09-18 16:09 | P.PN ---
Subjective Progress Note Date: 09/18/22 Principal diagnosis: fibrocystic breast changes fibrocystic breast pain Theodore [id number] white female seen initially in consultation for Dr. Hood secondary to right nipple discharge. This was dark green/brown in color. She has never noted any blood in the discharge. It does not occur spontaneously. It is related to her menstrual period. The pain is worse right before her menstrual period and in the mid cycle. Does not stain her bra. She has not noted any new lumps masses or nodules in either breast. In the past she has had a mammogram and ultrasound done of the breast. This was felt to be benign BIRADS 2. She has not had any recent radiographic evaluation. [place] [address] followed by an ultrasound of both breast which was felt to be benign BIRADS 2. Caffiene: one extra strength 5 hour energy per day, several Mountain Dew's per day; she has limited the Mountain Dew Nicotine: Half a pack per day for 7 years chocolate: several times/week hormones: none Family History: great grandmother maternal: bilateral breast cancer Hormonal History: menarche: 11 , breast fed: yes, age at : 21 periods regular, LMP Sept. 12 BCP: used for 1 month in the past Surgical history: colonoscopy EGD/ hiatal hernia Medical history: stomach pain hiatal hernia Social History: smoke: 1/2 PPD alcohol: rare drugs: Marijuana every night - Constitutional Constitutional: Denies chills, Denies fever - EENT Eyes: bilateral blurred vision, bilateral pain Ears: deny: decreased hearing, tinnitus Ears, nose, mouth and throat: Reports headache, Denies sore throat - Breasts Breasts: bilateral: as per HPI - Cardiovascular Cardiovascular: Reports high blood pressure, Denies chest pain, Denies shortness of breath - Respiratory Comment: asthma Respiratory: Denies cough - Gastrointestinal Gastrointestinal: Reports diarrhea - Genitourinary (Female) Genitourinary: Denies dysuria, Denies hematuria - Menstruation Menstruation: Reports period normal - Musculoskeletal Comment: scoliosis Musculoskeletal: Denies myalgias - Integumentary Integumentary: Denies pruritus, Denies rash - Neurological Neurological: Reports numbness, Reports weakness - Psychiatric Psychiatric: Reports anxiety, Reports depression - Endocrine Endocrine: Reports fatigue, Reports weight change - Hematologic/Lymphatic Comment: none - Allergic/Immunologic Allergic/Immunologic: Reports seasonal allergies Objective - Vital Signs Vital signs: Intake & Output 09/17/22 09/18/22 09/18/22 18:59 06:59 18:59 Weight 70.307 kg - Constitutional General appearance: Present: cooperative - EENT Eyes: Present: EOMI ENT: Present: hearing grossly normal - Neck Neck: Present: normal ROM - Respiratory Respiratory: bilateral: CTA - Cardiovascular Heart sounds: normal: S1, S2 - Integumentary Integumentary: Present: normal turgor - Musculoskeletal Musculoskeletal: Present: gait normal - Psychiatric Psychiatric: Present: A&O x's 3, appropriate affect, intact judgment & insight - Additional findings Additional findings: Breast Exam: BRA: 36C inspection: grade 2 ptosis, right breast slightly smaller than left breast palpation: Breasts: Multi-positional exam fibrocystic changes no dominant masses or nodules of concern Right axilla: No adenopathy of concern Left breast: Multiple positional exam fibrocystic changes no dominant masses or nodules of concern; slightly increased tissue in the upper outer quadrant on the left side greater than on the right that no discrete masses or nodules Left axilla: No adenopathy of concern At this time there is no nipple discharge on exam Assessment and Plan Assessment: Assessment and Plan Assessment: Impression: Fibrocystic breast changes cyclical in nature Plan: I've counseled the patient on decreasing caffeine intake and nicotine, she understands and will consider lifestyle modification Repeat physician exam in 1 year Patient to call sooner if any questions or concerns Cc: Dr. Hood
== END | disposition home or self-care (01) ==
LOC: WWCWWP 15:34
PROVIDERS: ATTEND Surgery
DX: Z53.9 Procedure and treatment not carried out, unspecified reason (principal)

== ENCOUNTER → 2024-03-16 | Outpatient (CLI) | payer OTHER | END | disposition home or self-care (01) | LOC: LABWHC1 12:29 | PROVIDERS: ATTEND Family Medicine | DX: R55 Syncope and collapse (principal) | CPT/HCPCS: 36415; 93005 ==